=== PATIENT | male | born 1980 | race Caucasian/White ===

== ENCOUNTER 2023-07-14 03:04 | Emergency (ER) | payer BC, SELFPAY ==
[2023-07-14 03:10] VITALS: BP 157/117; PULSE 92; RESP 16; TEMP 35.9; O2SAT 97; BMI 33.0
[2023-07-14] MEDS: predniSONE 10 MG TABLET 40 MG PO (03:39)
[2023-07-14] MEDS: ACETAMINOPHEN 500 MG TABLET 1000 MG PO (03:39)
--- NOTE | 2023-07-14 03:42 | ED.GENADULT ---
HPI - General Adult General Chief complaint: Neck Injury/Pain Stated complaint: Upper body pain /tingly Time Seen by Provider: 07/14/23 03:20 Source: patient Mode of arrival: ambulatory Limitations: no limitations History of Present Illness HPI narrative: 43-year-old male that reports no long-term medical problems presents the emergency department with 4 day history of pain in the left neck radiating down the left arm and into the left shoulder upper anterior chest area. No cardiac symptoms, shortness of breath. Pain is worse with certain head positions and seems to be a little worse at night. He had a little bit of tingling but no motor deficits in the left radial side hand this evening as well. He works as a metal fabricator welder. He absolutely denies any trauma or injury. No prior history of similar symptoms. No prior neck surgery or imaging. No difficulty moving his shoulder, elbow wrist or hands. No fevers or recent illness. He saw a chiropractor yesterday with no significant improvement in his pain. He has been using ibuprofen 1-2 tablets every few hours with no significant improvement in his symptoms. He reports that his past medical history is benign, no major long-term health problems but, no prior neck surgeries. No long-term medications or allergies. ROS is notable for no other generalized, neurological, musculoskeletal, skin, cardiac or respiratory changes. Related Data Home Medications Medication Instructions Recorded Confirmed No Known Home Medications 07/14/23 07/14/23 Allergies Allergy/AdvReac Type Severity Reaction Status Date / Time No Known Drug Allergies Allergy Verified 07/04/23 09:24 [facility] Medical History Otitis media ?H66.90 - Otitis media, unspecified, unspecified ear (ICD-10) Social History Smoking Status: Never smoker Do you use any of these nicotine containing products: None How often do you have a drink containing alcohol: monthly or less AUDIT-C Alcohol total score: 1 Non-prescribed substance use: denies use Exam Const: Vital Signs, click to edit/add: Vital Signs - 24 hr 07/14/23 03:10 Temperature 96.6 F L Pulse Rate [Pulse Oximeter] 92 Respiratory Rate 16 Blood Pressure [Ri ght Upper Arm] 157/117 H Pulse Oximetry 97 Oxygen Delivery Me thod Room Air Documenting provider has reviewed patient's vital signs: yes Common normals: no apparent distress General appearance: cooperative, comfortable and well kempt HENMT: Common normals: normocephalic Head and scalp: normocephalic Face and sinus: normal facial exam Mouth: oral and palatal mucosa normal Eye: General eye: normal appearance of both eyes Neck & C-Spine: Other: Cervical spine is normal range of motion. Spondylosis testing is actually negative. Mild tenderness to palpation over the lateral process of the left C5/C6 area. Also paraspinal muscle tenderness and trapezius tightness on that side. No step-offs, deformity or midline tenderness. Chest: Common normals: inspection of chest normal Resp: Common normals: normal respiratory effort, no use of accessory muscles and clear to auscultation bilaterally Effort & inspection: able to speak in complete sentences Auscultation: clear to auscultation bilaterally Cardio: Common normals: regular rate, regular rhythm, S1 normal heart sound, S2 normal heart sound and no murmurs Rate: regular rate Rhythm: regular rhythm Heart sounds: S1 normal and S2 normal Extremity: Other: Normal range of motion, strength and function of both shoulders, elbows wrists and hands. Neuro: Speech: speech normal Motor exam: strength 5/5 throughout and no movement abnormalities noted Psych: Appearance: well kempt Activity/motor behavior: appropriate eye contact Insight: insight good Judgement: judgment good Skin: Common normals: no rashes or lesions noted General skin exam: no rashes or lesions noted Course Course ED Course: Nontraumatic C5/C6 mild radiculopathy with no signs of weakness. No red flags for neurological or vascular compromise. Counseled patient that imaging in these instances is not typically helpful in management. He would benefit significantly from a course of physical therapy. I recommended that he make a follow-up appointment with his primary care doctor. We discussed pain control. I think he could benefit from a course of prednisone. Will give 40 mg p.o. here in the ED and then recommend 40 mg daily for 3 days and then 20 mg once daily for 4 days, then stop. For pain, Tylenol 1000 mg 4 times daily. Okay to continue use of ibuprofen but 600 mg every 4 hours would be a preferred dose. Continue drinking plenty of fluid. Counseled on heat to loosen muscles, gentle stretches, stressed the need for physical therapy but he may continue with the chiropractor if he finds this helpful. Limited supply of Flexeril given for nighttime to help with sleep. He may consider trying a half of a tablet during the day when he is not at work if needed. If he is not noting any improvement after 72 hours on the prednisone, he should make a follow-up appointment with his primary care doctor. Alarm symptoms reviewed that would warrant ED presentation. Discussed advanced imaging and how that is not typically helpful until after he has finished a course of physical therapy. He verbalizes understanding and agreement. Vital Signs Vital signs: Initial Vital Signs Temperature 96.6 F L 07/14/23 03:10 Temperature Source Temporal Artery Scan 07/14/23 03:10 Pulse Rate 92 07/14/23 03:10 Respiratory Rate 16 07/14/23 03:10 Blood Pressure 157/117 H 07/14/23 03:10 Blood Pressure Mean 130 H 07/14/23 03:10 Blood Pressure Position Sitting 07/14/23 03:10 Pulse Oximetry 97 07/14/23 03:10 Oxygen Delivery Method Room Air 07/14/23 03:10 Vital Signs Temperature 96.6 F L 07/14/23 03:10 Pulse Rate 92 07/14/23 03:10 Respiratory Rate 16 07/14/23 03:10 Blood Pressure 157/117 H 07/14/23 03:10 Pulse Oximetry 97 07/14/23 03:10 Oxygen Delivery Method Room Air 07/14/23 03:10 Temperature 96.6 F L 07/14/23 03:10 Pulse Rate 92 07/14/23 03:10 Respiratory Rate 16 07/14/23 03:10 Blood Pressure 157/117 H 07/14/23 03:10 Pulse Oximetry 97 07/14/23 03:10 Oxygen Delivery Method Room Air 07/14/23 03:10 Medications Administered Medications: Generic Name Dose Route Start Last Admin Trade Name Freq PRN Reason Stop Dose Admin Acetaminophen 1,000 mg 07/14/23 03:34 07/14/23 03:39 Acetaminophen 500 Mg Tablet PO 07/14/23 03:35 1,000 mg ONCE ONE Administration Prednisone 40 mg 07/14/23 03:34 07/14/23 03:39 Prednisone 10 Mg Tablet PO 07/14/23 03:35 40 mg ONCE ONE Administration Discharge Plan Discharge Clinical Impression: Cervical disc disorder at C5-C6 level with radiculopathy Patient Disposition: Home, Self-Care Condition: Stable Instructions: Cervical Disc Herniation (ED) Additional Instructions: As we discussed, there are no signs of problems within the shoulder or chest. Your symptoms are consistent with nerve impingement at the C5/C6 area in your left neck. This typically starts as arthritis but as symptoms worsen, the arthritis begins to press on the nerve initially causing numbness and tenderness but can progress to muscle weakness if left untreated. Since there is no history of trauma, x-rays will not be helpful in making the diagnosis today. MRIs can be helpful at seeing the problem but they do not treat the problem. 90% of people do get better with physical therapy. You will need to make a follow-up appointment with your primary care doctor or self refer yourself to physical therapy if that is a choice for you. Your primary care doctor can place the referral after an exam. If there is no improvement with physical therapy after about 8 weeks, follow-up with your primary care doctor again and will consider advanced imaging and/or specialty referral. As we discussed, there are no signs of any emergency going on. If you start having severe sudden inability to use the arm, weakness in your bowel or bladder or other severe neurological changes, you should come back to the emergency room. For pain, take Tylenol 1000 mg every 6 hours. You may add in ibuprofen 600 mg every 6 hours. I have started you on prednisone. Prednisone as an anti-inflammatory that should help take some of the swelling off of the nerve, likely enough to improve your pain within a couple of days. This may cause some irritability and insomnia. It will not cause sedation. You will need to continue taking the prednisone as prescribed for the next few days. Specifically, you have already taken today's dose. You will take 40 mg which is 2 tablets in the morning once daily on , Wednesday and Wednesday. You will then take 1 pill daily for the remaining 4 days. Nerve pain tends to be worse in the evening and at night. Because of this I am also giving you a muscle relaxant, Flexeril also known as cyclobenzaprine, that you may use at bedtime. It does tend to cause sedation but some people can tolerate a half of a pill during the daylight hours every 8 hours. Because your work has higher risk of injury, I would not recommend using the medication at work. I would recommend that you make a follow-up appointment with her primary care doctor right away to have your blood pressure recheck and to discuss a long-term plan for your cervical radiculopathy as her symptoms have a chance of flaring again over the next several years. It is okay to continue visiting the chiropractor as well, but pharmacist critical care will not replace physical therapy. Activity Level: Activity as Tolerated Discharge Diet: Regular Prescriptions: No Action No Known Home Medications Follow Up/Referrals: Provider,Not a Local [Primary Care Provider] - Stand Alone Forms: [employer] Info Instructions
== END 2023-07-14 03:53 | disposition home or self-care (01) ==
PROVIDERS: Emergency Provider Family Medicine
DX: M54.12 Radiculopathy, cervical region (principal)
CPT/HCPCS: 99283; A9270; J7512

== ENCOUNTER 2023-08-10 14:26 | Outpatient (CLI) | payer BC, SELFPAY | END 2023-08-10 14:27 | disposition home or self-care (01) | PROVIDERS: PCP Family Medicine; Visit Provider Family Medicine | DX: Z00.00 Encounter for general adult medical examination without abnormal findings (principal); I10 Essential (primary) hypertension; Z13.1 Encounter for screening for diabetes mellitus; G47.10 Hypersomnia, unspecified | CPT/HCPCS: 80053; 84443 ==

== ENCOUNTER 2023-09-13 19:24 | Outpatient (CLI) | payer BC, SELFPAY ==
--- NOTE | 2023-09-21 12:01 | W.PM.SLEEP ---
Sleep Study Details Details Interpreting Provider: Kamaljit Date of Sleep Study: 09/13/23 Sleep Study Details: STUDY TYPE:? Home unattended ? BMI:? 35 ORDERING PROVIDER:? Raj INDICATION:? Concerns about sleep apnea ? SLEEP SUMMARY:? 355.2 minutes monitored RESPIRATORY SUMMARY:? AHI 72.5 Low oxygen 61 41.8% of study oxygen less than 90% Snoring 10.8% PERIODIC LIMB MOVEMENTS OF SLEEP:? Not recorded during home study CARDIAC:? Range 60-114, mean 82 beats per minute IMPRESSION:? Severe obstructive sleep apnea RECOMMENDATION: Recommend an in-lab titration. If that is not feasible would recommend AutoSet CPAP pressure 4-17. Weight loss is also recommended.
== END 2023-09-13 19:25 | disposition home or self-care (01) ==
LOC: SLEEP 19:26
PROVIDERS: PCP Family Medicine; Visit Provider Family Medicine
DX: G47.33 Obstructive sleep apnea (adult) (pediatric) (principal)
CPT/HCPCS: 95806